=== PATIENT | female | born 1955 | race Caucasian/White ===

== ENCOUNTER → 2017-06-04 | Outpatient (CLI) | payer BC ==
--- NOTE | 2017-06-05 09:54 | MM ---
Reason for exam: screening (asymptomatic). Last mammogram was performed 1 year and 4 months ago. History: Patient is postmenopausal, has history of high-risk lesion on a previous biopsy at age 59, and had first child at age 33. Family history of breast cancer in maternal aunt at age 58. Benign MG stereo VAD BX LT of the left breast, June 22, 2015. High risk MG stereo VAD BX LT of the left breast, December 27, 2014. Physical Findings: A clinical breast exam by your physician is recommended on an annual basis and results should be correlated with mammographic findings. MG 3D Screening Mammo W/Cad Bilateral CC and MLO view(s) were taken. Prior study comparison: January 30, 2016, bilateral MG 3d diag mammo w/cad [facility]. June 17, 2015, left breast MG 3d diag mammo w/cad LT. There are scattered fibroglandular densities. Previous mammotome biopsy in the left breast x 2. No significant changes when compared with prior studies. ASSESSMENT: Negative, BI-RAD 1 RECOMMENDATION: Routine screening mammogram of both breasts in 1 year.
== END | disposition home or self-care (01) ==
LOC: RADMAMWWP 06:51
PROVIDERS: ATTEND Obstetrics & Gynecology
DX: Z12.31 Encounter for screening mammogram for malignant neoplasm of breast (principal); Z80.3 Family history of malignant neoplasm of breast
CPT/HCPCS: 77063; G0202

== ENCOUNTER → 2018-07-10 | Outpatient (CLI) | payer BC ==
--- NOTE | 2018-07-17 14:34 | MM ---
Reason for exam: screening (asymptomatic). Last mammogram was performed 1 year and 1 month ago. History: Patient is postmenopausal, has history of high-risk lesion on a previous biopsy at age 59, and had first child at age 33. Family history of breast cancer in maternal aunt at age 58. Benign MG stereo VAD BX LT of the left breast, June 22, 2015. High risk MG stereo VAD BX LT of the left breast, December 27, 2014. MG 3D Screening Mammo W/Cad Bilateral CC and MLO view(s) were taken. Prior study comparison: June 04, 2017, bilateral MG 3d screening mammo w/cad. January 30, 2016, bilateral MG 3d diag mammo w/cad [facility]. There are scattered fibroglandular densities. Left chronic nodularity in 2 areas. No significant changes when compared with prior studies. ASSESSMENT: Benign, BI-RAD 2 RECOMMENDATION: Routine screening mammogram of the left breast in 1 year.
== END | disposition home or self-care (01) ==
LOC: RADMAMWWP 07:46
PROVIDERS: ATTEND Obstetrics & Gynecology
DX: Z12.31 Encounter for screening mammogram for malignant neoplasm of breast (principal); Z80.3 Family history of malignant neoplasm of breast
CPT/HCPCS: 77063; 77067

== ENCOUNTER → 2019-03-06 | Outpatient (CLI) | payer BC ==
[2019-03-06 16:31] LABS: ALT 13 U/L (8-44); AST 21 U/L (13-35); Albumin/Globulin Ratio 1.88 (1.60-3.17); Alkaline Phosphatase 97 U/L (41-126); Bilirubin, Conjugated <0.20 mg/dL (0.20-0.40); Globulin 2.4 g/dL (1.6-3.3); Total Bilirubin 0.4 mg/dL (0.3-1.2); Total Protein 6.9 g/dL (6.2-8.2)
== END | disposition home or self-care (01) ==
LOC: LABWHC1 07:53
PROVIDERS: ATTEND Family Medicine
DX: R74.8 Abnormal levels of other serum enzymes (principal); E55.9 Vitamin D deficiency, unspecified
CPT/HCPCS: 36415; 80076; 82306

== ENCOUNTER → 2019-06-03 | Outpatient (CLI) | payer BC ==
[2019-06-03 11:23] LABS: ALT 35 U/L (8-44); AST 32 U/L (13-35); Alkaline Phosphatase 112 U/L (41-126); Bilirubin, Conjugated <0.20 mg/dL (0.20-0.40); Globulin 2.2 g/dL (1.6-3.3); Total Bilirubin 0.3 mg/dL (0.3-1.2); Total Protein 6.6 g/dL (6.2-8.2)
== END | disposition home or self-care (01) ==
LOC: LABWHC1 06:48
PROVIDERS: ATTEND Physician Assistant
DX: R74.8 Abnormal levels of other serum enzymes (principal)
CPT/HCPCS: 36415; 80076

== ENCOUNTER → 2019-08-18 | Outpatient (CLI) | payer BC ==
[2019-08-18 15:52] LABS: ALT 15 U/L (8-44); AST 25 U/L (13-35); Alkaline Phosphatase 76 U/L (41-126); Bilirubin, Conjugated <0.20 mg/dL (0.20-0.40); Globulin 2.1 g/dL (1.6-3.3); Total Bilirubin 0.3 mg/dL (0.2-1.2); Total Protein 6.3 g/dL (6.2-8.2)
== END | disposition home or self-care (01) ==
LOC: LABWHC1 08:56
PROVIDERS: ATTEND Physician Assistant
DX: R74.8 Abnormal levels of other serum enzymes (principal)
CPT/HCPCS: 36415; 80076

== ENCOUNTER → 2019-09-03 | Outpatient (CLI) | payer BC ==
--- NOTE | 2019-09-04 14:07 | MM ---
Reason for exam: screening (asymptomatic). Last mammogram was performed 1 year and 2 months ago. History: Patient is postmenopausal, has history of high-risk lesion on a previous biopsy at age 59, and had first child at age 33. Family history of breast cancer in maternal aunt at age 58. Benign MG stereo VAD BX LT of the left breast, June 22, 2015. High risk MG stereo VAD BX LT of the left breast, December 27, 2014. Physical Findings: A clinical breast exam by your physician is recommended on an annual basis and results should be correlated with mammographic findings. MG 3D Screening Mammo W/Cad Bilateral CC and MLO view(s) were taken. Prior study comparison: July 10, 2018, bilateral MG 3d screening mammo w/cad. June 04, 2017, bilateral MG 3d screening mammo w/cad. There are scattered fibroglandular densities. No suspicious abnormality. Two left biopsy markers noted associated with stable lobular mammographic masses. No significant changes when compared with prior studies. ASSESSMENT: Benign, BI-RAD 2 RECOMMENDATION: Routine screening mammogram of both breasts in 1 year.
== END | disposition home or self-care (01) ==
LOC: RADMAMWWP 07:47
PROVIDERS: ATTEND Obstetrics & Gynecology
DX: Z12.31 Encounter for screening mammogram for malignant neoplasm of breast (principal)
CPT/HCPCS: 77063; 77067

== ENCOUNTER → 2020-09-05 | Outpatient (CLI) | payer BC ==
[2020-09-05 08:45] LABS: Cholesterol 242 mg/dL (<200); HDL Cholesterol 51 mg/dL (40-60); LDL Cholesterol,Calculated 157 mg/dL (0-99); Triglycerides 171 mg/dL (<150)
--- NOTE | 2020-09-06 11:32 | MM ---
Reason for exam: screening (asymptomatic). Last mammogram was performed 1 year ago. History: Patient is postmenopausal, has history of high-risk lesion on a previous biopsy at age 59, and had first child at age 33. Family history of breast cancer in maternal aunt at age 58. Benign MG stereo VAD BX LT of the left breast, June 22, 2015. High risk MG stereo VAD BX LT of the left breast, December 27, 2014. Physical Findings: A clinical breast exam by your physician is recommended on an annual basis and results should be correlated with mammographic findings. MG 3D Screening Mammo W/Cad Bilateral CC and MLO view(s) were taken. Prior study comparison: September 03, 2019, bilateral MG 3d screening mammo w/cad. July 10, 2018, bilateral MG 3d screening mammo w/cad. There are scattered fibroglandular densities. Previous mammotome biopsy in the left breast x 2. There is chronic nodularity in the left breast. No significant changes when compared with prior studies. ASSESSMENT: Benign, BI-RAD 2 RECOMMENDATION: Routine screening mammogram of both breasts in 1 year.
== END ==
LOC: RADMAMWWP 07:17
PROVIDERS: ATTEND Family Medicine
DX: Z12.31 Encounter for screening mammogram for malignant neoplasm of breast (principal); Z78.0 Asymptomatic menopausal state; Z80.3 Family history of malignant neoplasm of breast
CPT/HCPCS: 77063; 77067; 80061

== ENCOUNTER → 2021-10-23 | Outpatient (CLI) | payer BC, MEDICARE ==
--- NOTE | 2021-10-25 10:41 | MM ---
Reason for exam: screening (asymptomatic). Last mammogram was performed 1 year and 2 months ago. History: Patient is postmenopausal, has history of high-risk lesion on a previous biopsy at age 59, and had first child at age 33. Family history of breast cancer in maternal aunt at age 58. Benign MG stereo VAD BX LT of the left breast, June 22, 2015. High risk MG stereo VAD BX LT of the left breast, December 27, 2014. Physical Findings: A clinical breast exam by your physician is recommended on an annual basis and results should be correlated with mammographic findings. MG 3D Screening Mammo W/Cad Bilateral CC and MLO view(s) were taken. Prior study comparison: September 05, 2020, bilateral MG 3d screening mammo w/cad. September 03, 2019, bilateral MG 3d screening mammo w/cad. There are scattered fibroglandular densities. Previous mammotome biopsy in the left breast. No significant changes when compared with prior studies. ASSESSMENT: Benign, BI-RAD 2 RECOMMENDATION: Routine screening mammogram of both breasts in 1 year.
== END | disposition home or self-care (01) ==
LOC: RADMAMWWP 07:19
PROVIDERS: ATTEND Family Medicine
DX: Z12.31 Encounter for screening mammogram for malignant neoplasm of breast (principal); Z78.0 Asymptomatic menopausal state; Z80.3 Family history of malignant neoplasm of breast
CPT/HCPCS: 77063; 77067

== ENCOUNTER → 2022-06-06 | Outpatient (CLI) | payer MEDICARE ==
[2022-06-06 14:41] LABS: Basophils # (A) 0.05 X 10*3/uL (0.00-0.10); Basophils % (A) 0.7 %; Eosinophils # (A) 0.16 X 10*3/uL (0.04-0.35); Eosinophils % (A) 2.2 %; HCT 45.7 % (37.2-46.3); HGB 14.7 g/dL (12.0-15.0); Immature Grans, Automated 0.4 %; Lymphocytes # (A) 2.35 X 10*3/uL (0.90-5.00); Lymphocytes % (A) 32.6 %; MCH 30.1 pg (27.0-32.0); MCHC 32.2 g/dL (32.0-37.0); MCV 93.5 fL (80.0-97.0); Mean Platelet Volume 10.7 fL (9.5-12.2); Monocytes # (A) 0.51 X 10*3/uL (0.20-1.00); Monocytes % (A) 7.1 %; NRBC Per 100 WBC 0 /100 WBCS (0.0-0.0); Platelet Count 282 X 10*3/uL (140-440); RBC 4.89 X 10*6/uL (4.10-5.20); RDW 12.8 % (11.5-14.5)
[2022-06-06 14:56] LABS: ALT 12 U/L (8-44); AST 26 U/L (13-35); Albumin 4.5 g/dL (3.8-4.9); Albumin/Globulin Ratio 1.41 (1.60-3.17); Alkaline Phosphatase 84 U/L (41-126); Blood Urea Nitrogen 13.6 mg/dL (9.0-27.0); C Reactive Protein <0.30 mg/dL (0.00-0.80); Calcium 9.9 mg/dL (8.7-10.3); Carbon Dioxide 23.7 mmol/L (20.0-27.5); Chloride 104 mmol/L (96-109); Chol/HDL Ratio 4.37 Ratio; Creatine Kinase 129 U/L (26-186); Globulin 3.2 g/dL (1.6-3.3); Glucose 80 mg/dL (70-110); LDL Cholesterol,Calculated 175.4 mg/dL (0.0-131.0); Non-African American GFR(CKD) 58.7 (60.0-200.0); Sodium 140 mmol/L (135-145); Total Protein 7.7 g/dL (6.2-8.2); VLDL Calculation 19.74 mg/dL (5.00-40.00)
== END | disposition home or self-care (01) ==
LOC: LABWHC1 07:23
PROVIDERS: ATTEND Family Medicine
DX: I10 Essential (primary) hypertension (principal); E78.2 Mixed hyperlipidemia
CPT/HCPCS: 36415; 80053; 80061; 82550; 83036; 84443; 85025; 86140

== ENCOUNTER → 2022-06-21 | Outpatient (CLI) | payer MEDICARE ==
[2022-06-22 00:02] LABS: Albumin 4.7 g/dL (3.8-4.9); Blood Urea Nitrogen 13.8 mg/dL (9.0-27.0); Calcium 10.4 mg/dL (8.7-10.3); Carbon Dioxide 25.3 mmol/L (20.0-27.5); Chloride 101 mmol/L (96-109); Glucose 77 mg/dL (70-110); Non-African American GFR(CKD) 58.7 (60.0-200.0); Potassium 3.8 mmol/L (3.5-5.5); Sodium 140 mmol/L (135-145)
[2022-06-22 04:08] LABS: Rheumatoid Factor, Qnt <10 IU/mL (0-15)
== END | disposition home or self-care (01) ==
LOC: LABWHC1 13:40
PROVIDERS: ATTEND Physician Assistant Medical
DX: M79.641 Pain in right hand (principal); N18.31 Chronic kidney disease, stage 3a
CPT/HCPCS: 36415; 80069; 83970; 86038; 86431

== ENCOUNTER → 2023-01-24 | Outpatient (CLI) | payer MEDICARE | END | disposition home or self-care (01) | LOC: LABWHC1 07:05 | PROVIDERS: ATTEND Physician Assistant Medical | DX: N18.2 Chronic kidney disease, stage 2 (mild) (principal) | CPT/HCPCS: 36415; 80053 ==

== ENCOUNTER → 2023-01-30 | Outpatient (CLI) | payer MEDICARE ==
[2023-01-30 11:15] LABS: ALT 20 U/L (8-44); AST 26 U/L (13-35); Albumin 4.8 d/dL (3.8-4.9); Albumin/Globulin Ratio 1.55 Ratio (1.60-3.17); Alkaline Phosphatase 104 U/L (41-126); BUN/Creat Ratio 12.42 Ratio (12.00-20.00); Blood Urea Nitrogen 14.9 mg/dL (9.0-27.0); Calcium 10.3 mg/dL (8.7-10.3); Carbon Dioxide 25.2 mmol/L (21.6-31.8); Chloride 102 mmol/L (96-109); Globulin 3.1 d/dL (1.6-3.3); Glucose 72 mg/dL (70-110); Potassium 4.2 mmol/L (3.5-5.5); Sodium 140 mmol/L (135-145); Total Bilirubin 0.4 mg/dL (0.3-1.2); Total Protein 7.9 d/dL (6.2-8.2)
== END | disposition home or self-care (01) ==
LOC: LABWHC1 07:01
PROVIDERS: ATTEND Physician Assistant Medical
DX: N18.2 Chronic kidney disease, stage 2 (mild) (principal)
CPT/HCPCS: 36415; 80053

== ENCOUNTER → 2023-03-01 | Outpatient (CLI) | payer MEDICARE ==
--- NOTE | 2023-03-02 05:56 | US ---
EXAMINATION TYPE: US kidneys/renal and bladder DATE OF EXAM: 03/01/2023 COMPARISON: NONE CLINICAL INDICATION: Female, 68 years old with history of N18.31 CHRONIC KIDNEY DISEASE, STAGE 3A; CK D EXAM MEASUREMENTS: Right Kidney: 9.4 x 4.2 x 4.2 cm Left Kidney: 10.1 x 3.9 x 5.3 cm Right Kidney: No hydronephrosis or masses seen Left Kidney: No hydronephrosis or masses seen Bladder: wnl Bilateral Jets seen: Yes IMPRESSION: No hydronephrosis. No specific abnormality seen.
== END | disposition home or self-care (01) ==
LOC: RADUSWWP 16:13
PROVIDERS: ATTEND Family Medicine
DX: N18.31 Chronic kidney disease, stage 3a (principal)
CPT/HCPCS: 76770

== ENCOUNTER → 2023-08-12 | Outpatient (CLI) | payer MEDICARE ==
[2023-08-12 11:35] LABS: Chol/HDL Ratio 3.06 Ratio; LDL Cholesterol,Calculated 100.8 mg/dL (0.0-131.0)
[2023-08-12 11:36] LABS: ALT 29 U/L (8-44); AST 28 U/L (13-35); Albumin 4.4 g/dL (3.8-4.9); Albumin/Globulin Ratio 1.42 Ratio (1.60-3.17); Alkaline Phosphatase 91 U/L (41-126); Carbon Dioxide 26.3 mmol/L (21.6-31.8); Chloride 102 mmol/L (96-109); Globulin 3.1 g/dL (1.6-3.3); Glucose 79 mg/dL (70-110); Potassium 4.2 mmol/L (3.5-5.5); Sodium 140 mmol/L (135-145); Total Bilirubin 0.4 mg/dL (0.3-1.2); Total Protein 7.5 g/dL (6.2-8.2)
== END | disposition home or self-care (01) ==
LOC: LABWHC1 06:56
PROVIDERS: ATTEND Family Medicine
DX: Z51.81 Encounter for therapeutic drug level monitoring (principal); Z79.899 Other long term (current) drug therapy
CPT/HCPCS: 36415; 80053; 80061

== ENCOUNTER → 2023-11-18 | Outpatient (CLI) | payer MEDICARE ==
--- NOTE | 2023-11-18 19:11 | MM ---
Reason for Exam: Screening (asymptomatic). Last screening mammogram was performed 12 month(s) ago. Patient History: Menarche at age 16. First Full-Term at age 33. Late child-bearing (after 30). Postmenopausal. 06/22/2015, Benign Core Biopsy on the left side. 12/27/2014, High risk Core Biopsy on the left side. Maternal aunt had breast cancer, age 58. Risk Values: Lucia 5 year model risk: 3.2%. NCI Lifetime model risk: 10.7%. Prior Study Comparison: 09/05/2020 Bilateral Screening Mammogram, [facility]. 10/23/2021 Bilateral Screening Mammogram, [facility]. 11/12/2022 Bilateral MG 3D screening mammo w/cad, [facility]. Tissue Density: There are scattered areas of fibroglandular density. Findings: Analyzed By CAD. Microclip left breast from prior biopsy. There is no suspicious group of microcalcifications or new suspicious mass in either breast. Overall Assessment: Benign, BI-RAD 2 Management: Screening Mammogram of both breasts in 1 year. See note below in regards to patient's increased 5 year Lucia score. Patient should continue monthly self-breast exams. A clinical breast exam by your physician is recommended on an annual basis. This exam should not preclude additional follow-up of suspicious palpable abnormalities. Note on Lucia scores and lifetime risk: 1. A Lucia score greater than 3% is considered moderate risk. If this is the case, consider specialist referral to assess eligibility for a risk reducing agent. 2. If overall lifetime risk for the development of breast cancer is 20% or higher, the patient may qualify for future screening with alternating mammogram and breast MRI. Electronically signed and approved by: Jefry Spencer M.D. Radiologist
== END | disposition home or self-care (01) ==
LOC: RADMAMWWP 06:53
PROVIDERS: ATTEND Family Medicine
DX: Z12.31 Encounter for screening mammogram for malignant neoplasm of breast (principal); Z78.0 Asymptomatic menopausal state; Z80.3 Family history of malignant neoplasm of breast
CPT/HCPCS: 77063; 77067

== ENCOUNTER → 2024-01-07 | Outpatient (CLI) | payer MEDICARE ==
[2024-01-07 11:52] LABS: ALT 13 U/L (8-44); AST 22 U/L (13-35); Albumin 4.5 g/dL (3.8-4.9); Alkaline Phosphatase 82 U/L (41-126); Blood Urea Nitrogen 13.6 mg/dL (9.0-27.0); Calcium 9.7 mg/dL (8.7-10.3); Carbon Dioxide 24.4 mmol/L (21.6-31.8); Chloride 101 mmol/L (96-109); Globulin 2.5 g/dL (1.6-3.3); Glucose 76 mg/dL (70-110); LDL Cholesterol,Calculated 84.6 mg/dL (0.0-131.0); Potassium 3.7 mmol/L (3.5-5.5); Sodium 139 mmol/L (135-145); Total Bilirubin 0.4 mg/dL (0.3-1.2); VLDL Calculation 14.76 mg/dL (5.00-40.00)
== END | disposition home or self-care (01) ==
LOC: LABWHC1 06:46
PROVIDERS: ATTEND Family Medicine
DX: E78.5 Hyperlipidemia, unspecified (principal)
CPT/HCPCS: 36415; 80053; 80061

== ENCOUNTER 2024-02-12 12:30 | Day surgery (SDC) | payer MEDICARE ==
[~2024-02-12 12:30] MED LIST: LACTATED RINGERS 1,000 ML BAG ONE; PROPOFOL 10 MG/ML 20 ML VIAL IV ONE
--- NOTE | 2024-03-06 17:05 | P.PCN ---
Date of Procedure: 02/13/24 Procedure(s) Performed: This is an addendum to the procedure that was performed on 02/13/2024. Procedure performed colonoscopy with biopsy Procedure: Scope was advanced into the cecum. Careful examination was performed. In the descending colon there was a 4 mm polyp that was removed by cold biopsy. In the sigmoid colon there was a 4 mm polyp removed by cold biopsy. Rest of the colon appeared normal
== END 2024-02-12 12:38 | disposition home or self-care (01) ==
LOC: ORWHC2ENDO 12:30
PROVIDERS: ATTEND Internal Medicine Gastroenterology
DX: Z12.11 Encounter for screening for malignant neoplasm of colon (principal); I10 Essential (primary) hypertension; E78.5 Hyperlipidemia, unspecified; Z88.2 Allergy status to sulfonamides; Z88.1 Allergy status to other antibiotic agents; Z79.899 Other long term (current) drug therapy
CPT/HCPCS: 45380

== ENCOUNTER → 2024-07-10 | Outpatient (CLI) | payer MEDICARE ==
[2024-07-10 11:11] LABS: ALT 21 U/L (8-44); AST 23 U/L (13-35); Albumin 4.5 g/dL (3.8-4.9); Albumin/Globulin Ratio 1.67 Ratio (1.60-3.17); Alkaline Phosphatase 96 U/L (41-126); Blood Urea Nitrogen 12.5 mg/dL (9.0-27.0); C Reactive Protein, High Sens 0.434 mg/L (0.000-3.000); Calcium 9.6 mg/dL (8.7-10.3); Carbon Dioxide 26.9 mmol/L (21.6-31.8); Chloride 100 mmol/L (96-109); Chol/HDL Ratio 2.89 Ratio; Globulin 2.7 g/dL (1.6-3.3); Glucose 95 mg/dL (70-110); LDL Cholesterol,Calculated 111.7 mg/dL (0.0-131.0); Potassium 4.2 mmol/L (3.5-5.5); Sodium 139 mmol/L (135-145); Total Bilirubin 0.4 mg/dL (0.3-1.2); Total Protein 7.2 g/dL (6.2-8.2)
[2024-07-10 11:35] LABS: Basophils # (A) 0.04 X 10*3/uL (0.00-0.10); Basophils % (A) 0.4 %; Eosinophils # (A) 0.15 X 10*3/uL (0.04-0.35); Eosinophils % (A) 1.5 %; HCT 46.6 % (37.2-46.3); HGB 14.7 g/dL (12.0-15.0); Lymphocytes # (A) 2.24 X 10*3/uL (0.90-5.00); MCH 29.8 pg (27.0-32.0); MCHC 31.5 g/dL (32.0-37.0); MCV 94.3 FL (80.0-97.0); Mean Platelet Volume 10.5 FL (9.5-12.2); Monocytes # (A) 0.68 X 10*3/uL (0.20-1.00); Monocytes % (A) 6.7 %; NRBC Per 100 WBC 0 X 10*3/uL (0.00-0.01); Neutrophils # (A) 7.04 X 10*3/uL (1.80-7.70); Platelet Count 284 X 10*3/uL (140-440); RBC 4.94 X 10*6/uL (4.10-5.20); RDW 13.2 % (11.5-14.5); WBC 10.19 X 10*3/uL (4.50-10.00)
== END | disposition home or self-care (01) ==
LOC: LABWHC1 06:51
DX: Z13.1 Encounter for screening for diabetes mellitus (principal); I10 Essential (primary) hypertension; E78.5 Hyperlipidemia, unspecified; E55.9 Vitamin D deficiency, unspecified
CPT/HCPCS: 36415; 80053; 80061; 82306; 83036; 84443; 85025; 86141